=== PATIENT | male | born 1995 ===

== ENCOUNTER 2020-03-22 09:08 | Outpatient (NON) | payer BC, SELFPAY ==
[2020-03-22 23:32] LABS: SARS-CoV-2 RNA PCR Negative
== END 2020-03-22 09:09 ==
PROVIDERS: PCP Family Medicine; Visit Provider Physician Assistant Medical
DX: R68.89 Other general symptoms and signs (principal); Z20.822 Contact with and (suspected) exposure to COVID-19
CPT/HCPCS: C9803; U0003

== ENCOUNTER → 2021-03-30 09:35 | Outpatient (CLI) | payer BC, SELFPAY ==
[2021-03-31 23:20] LABS: SARS-CoV-2 RNA PCR Positive
== END ==
PROVIDERS: PCP Family Medicine; Visit Provider Family Medicine
DX: U07.1 COVID-19 (principal)
CPT/HCPCS: C9803; U0003; U0005

== ENCOUNTER 2024-10-04 15:03 | Emergency (ER) | payer BC, SELFPAY ==
--- NOTE | ~2024-10-04 | XR_ITS ---
EXAM/ PROCEDURE: XR finger 3rd LT min 2V - 10/04/2024 15:13 CDT HISTORY: 29 years old Male with pain, bruising Lt 3rd finger, stuck in rope swing and pulled COMPARISON: None available TECHNIQUE: Three view(s) FINDINGS/ IMPRESSION: There are no fractures or dislocations.Joint spaces are within normal limits. Reviewed, dictated and finalized at location A.
[2024-10-04 15:08] VITALS: BP 126/89; PULSE 69; RESP 16; TEMP 36.7; O2SAT 100
--- NOTE | 2024-10-04 15:15 | ED_ITS ---
HPI - Extremity Injury (Upper) General Chief Complaint: Extremity Injury, Upper Stated Complaint: Injured Finger Time Seen by Provider: 10/04/24 15:15 Source: patient Mode of arrival: ambulatory Limitations: no limitations History of Present Illness HPI narrative: 29-year-old male presents with pain to left middle finger. Patient was jumping from a rope swing and the report became twisted around his finger causing a pulling injury. Pain with movement and at rest. Mild swelling noted, distal neurovascularly intact. All systems reviewed and negative except as noted above. Related Data Home Medications ?Medication ?Instructions ?Recorded ?Confirmed ?Last Taken ?Type No Home Medications 10/04/24 10/04/24 Unknown History Allergies Allergy/AdvReac Type Severity Reaction Status Date / Time No Known Allergies Allergy Unknown Verified 10/04/24 15:10 Review of Systems Review of Systems: CONSTITUTIONAL: Denies fever, chills, or sweats. EYES: Denies visual changes, redness, or discharge. ENT: Denies rhinorrhea, congestion, sore throat, or otalgia. CARDIOVASCULAR: Denies chest pain, palpitations, or edema. RESPIRATORY: Denies cough or dyspnea. GASTROINTESTINAL: Denies abdominal pain, nausea, vomiting, or diarrhea. GENITOURINARY: Denies dysuria or hematuria. SKIN: Denies rash or itching. MUSCULOSKELETAL: Denies back pain, joint pain, or myalgia. Reports pain to left middle finger NEUROLOGIC: Denies headache, numbness, or weakness. PSYCHIATRIC: Denies anxiety or depression. All other systems reviewed are negative, except as documented in HPI. [facility] Past Medical History Medical History (Updated 10/04/24 @ 15:51 by Linda Isidro NP) COVID-19 Cervical spinal stenosis BPV (benign positional vertigo) Social History Social History (Updated 04/18/20 @ 08:23 by Dilia Altman CMA) Smoking status: Never smoker Alcohol intake: current Substance use: never Substance use type: does not use Comments At time of signature, agree with nursing past medical, surgical, social and family history. There is no relevant family history pertinent to the presenting complaint. Exam Narrative: GENERAL: This is a well-nourished, well-developed patient, in no apparent d istress. HEAD: normocephalic, atraumatic. EYES: PERRL. Sclera clear/white. Vision is grossly intact. EARS: External ears normal NOSE: External nose normal NECK: Neck supple, non-tender without lymphadenopathy, masses or thyromegaly. CARDIOVASCULAR: Regular rate and rhythm without murmurs, gallops, or rubs. RESPIRATORY: Clear to auscultation. Breath sounds equal bilaterally. No wheezes, rales, or rhonchi. SKIN: warm, Dry, intact with no suspicious lesions or rash, good texture and turgor. NEURO: awake, alert, and oriented to person, place and time. There were no obvious focal neurologic abnormalities. EXTREMITIES: Tenderness to distal aspect left middle finger with swelling and bruising noted. Range of motion decreased due to pain. Distal neurovascularly intact. Course Course Level of Care: Express Care Visit Vital Signs Vital signs: Vital Signs Temperature 36.7 C 10/04/24 15:08 Pulse Rate 69 10/04/24 15:08 Respiratory Rate 16 10/04/24 15:08 Blood Pressure 126/89 10/04/24 15:08 Pulse Oximetry 100 10/04/24 15:08 Oxygen Delivery Room Air 10/04/24 15:08 Temperature 36.7 C 10/04/24 15:08 Pulse Rate 69 10/04/24 15:08 Respiratory Rate 16 10/04/24 15:08 Blood Pressure 126/89 10/04/24 15:08 Pulse Oximetry 100 10/04/24 15:08 Oxygen Delivery Room Air 10/04/24 15:08 Reviewed MDM - Extremity Injury (Upper) MDM Narrative Medical decision making narrative: Radiologist read left middle finger negative for fracture. On AP and oblique views a possible fracture is noted. Will refer to orthopedics for further evaluation. Finger splint placed. Differential Diagnosis Differential diagnosis: Likely finger sprain, dislocation of finger and other (Finger fracture, finger contusion) Discharge Plan Discharge Clinical Impression: Closed fracture of phalanx of left middle finger Qualifiers: Encounter type: initial encounter Phalanx: distal Patient Disposition: Home Condition: Stable Instructions: Finger Fracture (ED) Additional Instructions: The x-ray of your left middle finger is concerning for a fracture. A finger splint was placed today. May remove for showering and when at rest. Follow up with your doctor or primary care physician for further fracture care. Patient Language: Mongolian Prescriptions: No Action No Home Medications Follow-up/Referrals: Mike Quintana MD [Primary Care Provider] - Irvin Mcginnis MD [Physician] - (follow up with retail marketing specialist for further evaluation of finger fracture) Time of Disposition: 15:51
== END 2024-10-04 15:56 | disposition home or self-care (01) ==
PROVIDERS: Emergency Provider Nurse Practitioner Family; PCP Family Medicine
DX: S62.633A Displaced fracture of distal phalanx of left middle finger, initial encounter for closed fracture (principal); X58.XXXA Exposure to other specified factors, initial encounter; M48.02 Spinal stenosis, cervical region; Z86.16 Personal history of COVID-19
CPT/HCPCS: 29130; 73140; 99214; G0463